=== PATIENT | male | born 1985 | race Caucasian/White ===

== ENCOUNTER 2019-04-19 18:44 | Emergency (ER) | payer OTHER ==
[2019-04-19 19:51] LABS: Basophils % (A) 1 %; Eosinophils # (A) 0.2 k/uL (0-0.7); Eosinophils % (A) 2 %; HCT 44.3 % (39.0-53.0); HGB 14.8 gm/dL (13.0-17.5); Lymphocytes # (A) 1.6 k/uL (1.0-4.8); Lymphocytes % (A) 22 %; MCH 29.6 pg (25.0-35.0); MCHC 33.5 g/dL (31.0-37.0); MCV 88.4 fL (80.0-100.0); Mean Platelet Volume 8.3; Monocytes # (A) 0.4 k/uL (0-1.0); Monocytes % (A) 6 %; Neutrophils # (A) 4.8 k/uL (1.3-7.7); Neutrophils % (A) 66 %; Platelet Count 217 k/uL (150-450); RBC 5.02 m/uL (4.30-5.90); RDW 12.8 % (11.5-15.5); WBC 7.2 k/uL (3.8-10.6)
[2019-04-19 20:01] LABS: ALT 44 U/L (4-49); AST 30 U/L (17-59); African American GFR (CKD) >90 (>60 ml/min/1.73 sqM); Albumin 4.5 g/dL (3.5-5.0); Alkaline Phosphatase 70 U/L (38-126); Anion Gap 10 mmol/L; Blood Urea Nitrogen 20 mg/dL (9-20); Calcium 9.3 mg/dL (8.4-10.2); Carbon Dioxide 26 mmol/L (22-30); Chloride 103 mmol/L (98-107); Glucose 111 mg/dL (74-99); Non-African American GFR(CKD) >90 (>60 ml/min/1.73 sqM); Potassium 4.4 mmol/L (3.5-5.1); Sodium 139 mmol/L (137-145); Total Bilirubin 0.6 mg/dL (0.2-1.3); Total Protein 7.2 g/dL (6.3-8.2)
--- NOTE | 2019-04-19 21:09 | ED ---
General Adult HPI - General Chief complaint: GI Bleed Stated complaint: Blood in stool Time Seen by Provider: 04/19/19 19:15 Source: patient, RN notes reviewed, old records reviewed Mode of arrival: ambulatory Limitations: no limitations - History of Present Illness Initial comments: 34-year-old male patient with the chief complaint of rectal bleeding. Patient reports he had dark red stool 2 times today. Also reports some generalized periumbilical abdominal discomfort. Denies the use of blood thinners. Reports he did have some rectal bleeding proximally 6 years ago. Denies any history of colonoscopy. Denies a history of ulcerative colitis or Crohn's. Denies any other complaints. Systemic: Pt denies fatigue, fever/chills, rash. Pt denies weakness, night sweats, weight loss. Neuro: Pt denies headache, visual disturbances, syncope or pre-syncope. HEENT: Pt denies ocular discharge or irritation, otalgia, rhinorrhea, pharyngiti s or notable lymphadenopathy. Cardiopulmonary: Pt denies chest pain, SOB, heart palpitations, dyspnea on exertion. Abdominal/GI: Pt denies n/v/d. : Pt denies dysuria, burning w/ urination, frequency/urgency. Denies new onset urinary or bowel incontinence. MSK: Pt denies myalgia, loss of strength or function in extremities. Neuro: Pt denies new onset weakness, paresthesias. - Related Data Allergies Allergy/AdvReac Type Severity Reaction Status Date / Time No Known Allergies Allergy Verified 04/19/19 18:51 Review of Systems ROS Statement: Those systems with pertinent positive or pertinent negative responses have been documented in the HPI. ROS Other: All systems not noted in ROS Statement are negative. Past Medical History Past Medical History: Asthma Additional Past Medical History / Comment(s): back pain, neck pain History of Any Multi-Drug Resistant Organisms: None Reported Past Surgical History: No Surgical Hx Reported Past Psychological History: No Psychological Hx Reported Smoking Status: Never smoker Past Alcohol Use History: Occasional Past Drug Use History: None Reported General Exam - General Exam Comments Initial Comments: Constitutional: NAD, AOX3, Pt has pleasant affect. HEENT: NC/AT, trachea midline, neck supple, no lymphadenopathy. Posterior pharynx non erythematous, without exudates. External ears appear normal, without discharge. Mucous membranes moist. Eyes PERRLA, EOM intact. There is no scleral icterus. No pallor noted. Cardiopulmonary: RRR, no murmurs, rubs or gallops, no JVD noted. Lungs CTAB in anterior and posterior guajardo. No peripheral edema. Abdominal exam: Abdomen soft and non-distended. Abdomen midly tender to palpation in periumbilical region.. Bowel sounds active in LLQ. No hepatosplenomegaly. No ecchymosis Neuro: CN II-XII grossly intact. No nuchal rigidity. No raccon eyes, no duffy sign, no hemotympanum. No cervical spinal tenderness. MSK: No posterior calf tenderness bilaterally, homans sign negative bilaterally. Posterior tibialis and radial pulse +2 bilaterally. Sensation intact in upper and lower extremities. Full active ROM in upper and lower extremities, 5/5 stregnth. Rectal: Rectal exam performed, dried blood noted, internal hemorrhoid noted at 5:00. Limitations: no limitations Course Vital Signs 04/19/19 18:49 Temperature 99.0 F Pulse Rate 101 H Respiratory 20 Rate Blood Pressure 127/86 O2 Sat by Pulse 94 L Oximetry Medical Decision Making - Medical Decision Making 34-year-old male patient with the chief complaint of rectal bleeding. Patient reports he had dark red stool 2 times today. Also reports some generalized pe riumbilical abdominal discomfort. Denies the use of blood thinners. Reports he did have some rectal bleeding proximally 6 years ago. Denies any history of colonoscopy. Denies a history of ulcerative colitis or Crohn's. Denies any other complaints. Patient vital signs are stable, afebrile. Physical exam displayed mild amount of periumbilical abdominal discomfort. Exam revealed dried blood, internal hemorrhoid. Laboratory investigations were obtained, he will be stable at 14.8. Occult blood is negative. Otherwise noncompressive. KUB displayed no acute process. Etiology of patient's rectal bleeding likely internal hemorrhoid. Pt declines CT of abdomen and pelvis. Patient will monitor abdominal discomfort will return to ER if condition worsens. Otherwise patient follow up with GI consult tomorrow, so his primary care provider. Case discussed with Dr. Saunders. - Lab Data Result diagrams: 04/19/19 19:09 04/19/19 19:09 Lab Results 04/19/19 04/19/19 04/19/19 Range/Units 19:09 19:09 19:09 WBC 7.2 (3.8-10.6) k/uL RBC 5.02 (4.30-5.90) m/uL Hgb 14.8 (13.0-17.5) gm/dL Hct 44.3 (39.0-53.0) % MCV 88.4 (80.0-100.0) fL MCH 29.6 (25.0-35.0) pg MCHC 33.5 (31.0-37.0) g/dL RDW 12.8 (11.5-15.5) % Plt Count 217 (150-450) k/uL Neutrophils % 66 % Lymphocytes % 22 % Monocytes % 6 % Eosinophils % 2 % Basophils % 1 % Neutrophils # 4.8 (1.3-7.7) k/uL Lymphocytes # 1.6 (1.0-4.8) k/uL Monocytes # 0.4 (0-1.0) k/uL Eosinophils # 0.2 (0-0.7) k/uL Basophils # 0.0 (0-0.2) k/uL Sodium 139 (137-145) mmol/L Potassium 4.4 (3.5-5.1) mmol/L Chloride 103 (98-107) mmol/L Carbon Dioxide 26 (22-30) mmol/L Anion Gap 10 mmol/L BUN 20 (9-20) mg/dL Creatinine 1.01 (0.66-1.25) mg/dL Est GFR (CKD-EPI)AfAm >90 (>60 ml/min/1.73 sqM) Est GFR (CKD-EPI)NonAf >90 (>60 ml/min/1.73 sqM) Glucose 111 H (74-99) mg/dL Calcium 9.3 (8.4-10.2) mg/dL Total Bilirubin 0.6 (0.2-1.3) mg/dL AST 30 (17-59) U/L ALT 44 (4-49) U/L Alkaline Phosphatase 70 (38-126) U/L Total Protein 7.2 (6.3-8.2) g/dL Albumin 4.5 (3.5-5.0) g/dL Lipase (23-300) U/L Stool Occult Blood Negative (Negative) 04/19/19 Range/Units 19:09 WBC (3.8-10.6) k/uL RBC (4.30-5.90) m/uL Hgb (13.0-17.5) gm/dL Hct (39.0-53.0) % MCV (80.0-100.0) fL MCH (25.0-35.0) pg MCHC (31.0-37.0) g/dL RDW (11.5-15.5) % Plt Count (150-450) k/uL Neutrophils % % Lymphocytes % % Monocytes % % Eosinophils % % Basophils % % Neutrophils # (1.3-7.7) k/uL Lymphocytes # (1.0-4.8) k/uL Monocytes # (0-1.0) k/uL Eosinophils # (0-0.7) k/uL Basophils # (0-0.2) k/uL Sodium (137-145) mmol/L Potassium (3.5-5.1) mmol/L Chloride (98-107) mmol/L Carbon Dioxide (22-30) mmol/L Anion Gap mmol/L BUN (9-20) mg/dL Creatinine (0.66-1.25) mg/dL Est GFR (CKD-EPI)AfAm (>60 ml/min/1.73 sqM) Est GFR (CKD-EPI)NonAf (>60 ml/min/1.73 sqM) Glucose (74-99) mg/dL Calcium (8.4-10.2) mg/dL Total Bilirubin (0.2-1.3) mg/dL AST (17-59) U/L ALT (4-49) U/L Alkaline Phosphatase (38-126) U/L Total Protein (6.3-8.2) g/dL Albumin (3.5-5.0) g/dL Lipase 88 (23-300) U/L Stool Occult Blood (Negative) Disposition Clinical Impression: Internal hemorrhoid, Abdominal pain Disposition: HOME SELF-CARE Condition: Stable Instructions (If sedation given, give patient instructions): Hemorrhoids (ED), High Fiber Diet (ED), Acute Abdominal Pain (ED) Additional Instructions: Follow-up with primary care provider and GI consult tomorrow. Return to ER if abdominal pain worsens in any way or the location changes. Return to ER if rectal bleeding returns or worsens or if condition worsens in anyway. Recommended high-fiber diet and stool softeners. Is patient prescribed a controlled substance at d/c from ED?: No Referrals: Esteban Borges DO [Primary Care Provider] - 1-2 days Tu Zhou MD [STAFF PHYSICIAN] - 1-2 days
--- NOTE | 2019-04-19 21:38 | XR ---
EXAMINATION TYPE: XR KUB 2 views DATE OF EXAM: 04/19/2019 8:48 PM CLINICAL HISTORY: Pain TECHNIQUE: 2 upright views COMPARISON: None. FINDINGS: Scattered gas is seen in non-distended small bowel loops. Gas and fecal material is seen in non-distended colon. There is no visceromegaly, pneumoperitoneum, or abnormal calcification apprecia rohit. The lung bases are clear and the osseous structures are intact. IMPRESSION: No acute radiographic process.
[2019-04-19 22:18] VITALS: BP 136/80; PULSE 97; RESP 18; TEMP 98.8
== END 2019-04-19 22:18 | disposition home or self-care (01) ==
LOC: SUPCPDRO 18:44 → EC 18:44
DX: K64.8 Other hemorrhoids (principal)
CPT/HCPCS: 36415; 74018; 80053; 82272; 83690; 85025; 99284

== ENCOUNTER 2022-08-30 06:07 | Observation (INO) | payer OTHER ==
[2022-08-30] MEDS ORDERED: MORPHINE SULFATE 4 MG/ML SYRINGE IVP STA (06:18)
[2022-08-30] MEDS ORDERED: KETOROLAC 15 MG/ML 1 ML VIAL IVP STA (06:22)
--- NOTE | 2022-08-30 06:31 | ED ---
General Adult HPI <Marquez Serrato - Last Filed: 08/30/22 06:19> <Justin Durán - Last Filed: 08/30/22 10:13> - General Stated complaint: Chest Pain Time Seen by Provider: 08/30/22 06:17 - History of Present Illness Initial comments: This is a 37-year-old male with a past medical history including asthma presents emergency department via EMS for right-sided abdominal pain that is transitioned to central chest pain. The patient stated this woke him up out of sleep and started approximately one hour ago. The patient stated that he had pain that woke up in the right side of the abdomen however during transport with EMS is not transitioned to a pressure sensation in the middle of his chest. The patient reported associated nausea and diaphoresis however stated that he had never had any similar pain like this before. The patient was given a nitro dose via EMS and stated that he had mild improvement however his pain had recurred. The patient denied any other acute complaints at this time. (Marquez Serrato) - Related Data Allergies Allergy/AdvReac Type Severity Reaction Status Date / Time No Known Allergies Allergy Verified 08/30/22 08:35 Review of Systems ROS Other: All systems not noted in ROS Statement are negative. <Marquez Serrato - Last Filed: 08/30/22 06:19> ROS Other: All systems not noted in ROS Statement are negative. <Justin Durán - Last Filed: 08/30/22 10:13> ROS Statement: Those systems with pertinent positive or pertinent negative responses have been documented in the HPI. Past Medical History Past Medical History: Asthma Additional Past Medical History / Comment(s): back pain, neck pain History of Any Multi-Drug Resistant Organisms: None Reported Past Surgical History: No Surgical Hx Reported Past Psychological History: No Psychological Hx Reported Past Alcohol Use History: Occasional Past Drug Use History: None Reported <Marquez Serrato - Last Filed: 08/30/22 06:19> General Exam Limitations: no limitations General appearance: alert, in no apparent distress, in distress (2/2 to abdominal and chest pain), obese Head exam: Present: atraumatic, normocephalic, normal inspection Eye exam: Present: normal appearance, PERRL Pupils: Present: normal accommodation ENT exam: Present: normal exam, normal oropharynx, mucous membranes moist Neck exam: Present: normal inspection, full ROM Respiratory exam: Present: normal lung sounds bilaterally, chest wall tenderness (TTP over the sternum) Cardiovascular Exam: Present: regular rate, normal rhythm, normal heart sounds GI/Abdominal exam: Present: soft, normal bowel sounds Extremities exam: Present: normal inspection, full ROM Back exam: Present: normal inspection, full ROM Neurological exam: Present: alert, oriented X3, CN II-XII intact Psychiatric exam: Present: normal affect, normal mood Skin exam: Present: warm, dry <Marquez Serrato - Last Filed: 08/30/22 06:19> Course Vital Signs 08/30/22 08/30/22 08/30/22 06:13 07:03 07:08 Temperature 98.4 F Pulse Rate 76 79 70 Respiratory 28 H 20 16 Rate Blood Pressure 127/82 129/82 123/82 O2 Sat by Pulse 97 94 L 95 Oximetry 08/30/22 08:11 Temperature Pulse Rate 62 Respiratory 18 Rate Blood Pressure 121/88 O2 Sat by Pulse 98 Oximetry EKG Findings - EKG Comments: EKG Findings:: An EKG was obtained and was interpreted by myself showing a rate of 75, WA interval 188, QRS duration 98 and QTC of 434. This EKG showed a normal sinus rhythm without any significant ST segment elevation or depression noted. <Marquez Serrato - Last Filed: 08/30/22 06:19> Medical Decision Making <Marquez Serrato - Last Filed: 08/30/22 06:19> - Lab Data Result diagrams: 08/30/22 06:20 08/30/22 06:20 <Justin Durán - Last Filed: 08/30/22 10:13> - Medical Decision Making Was pt. sent in by a medical professional or institution (, PA, SCREW MACHINE SET UP OPERATOR TOOL, urgent care, hospital, or fdc...) When possible be specific @ -No Did you speak to anyone other than the patient for history (EMS, parent, family, police, friend...)? What history was obtained from this source @ -No Did you review nursing and triage notes (agree or disagree)? Why? @ -I reviewed and agree with nursing and triage notes Were old charts reviewed (outside hosp., previous admission, EMS record, old EKG, old radiological studies, urgent care reports/EKG's, fdc records)? Report findings @ -No old charts were reviewed Differential Diagnosis (chest pain, altered mental status, abdominal pain women, abdominal pain men, vaginal bleeding, weakness, fever, dyspnea, syncope, headache, dizziness, GI bleed, back pain, seizure, CVA, palpatations, mental health)? @ -Cholecystitis, ACS, pneumonia, pneumothorax EKG interpreted by me (3pts min.). @ -As above X-rays interpreted by me (1pt min.). @ -Chest x-ray was obtained but was pending at this time. CT interpreted by me (1pt min.). @ -None done U/S interpreted by me (1pt. min.). @ -A right upper quadrant ultrasound was also obtained but was still pending at this time. What testing was considered but not performed or refused? (CT, X-rays, U/S, labs)? Why? @ -None What meds were considered but not given or refused? Why? @ -None Did you discuss the management of the patient with other professionals (professionals i.e. , PA, SCREW MACHINE SET UP OPERATOR TOOL, lab, RT, psych nurse, social service manager, blow mold technician, teacher, transport corps officer, home health care case manager)? Give summary @ -No Was smoking cessation discussed for >3mins.? @ -No Was critical care preformed (if so, how long)? @ -No Were there social determinants of health that impacted care today? How? (Homelessness, low income, unemployed, alcoholism, drug addiction, transportation, low edu. Level, literacy, decrease access to med. care, [facility], rehab)? @ -No Was there de-escalation of care discussed even if they declined (Discuss DNR or withdrawal of care, Hospice)? DNR status @ -No What co-morbidities impacted this encounter? (DM, HTN, Smoking, COPD, CAD, Cancer, CVA, ARF, Chemo, Hep., AIDS, mental health diagnosis, sleep apnea, morbid obesity)? @ -None Was patient admitted / discharged? Hospital course, mention meds given and route, prescriptions, significant lab abnormalities, going to OR and other pertinent info. @ -The patient was seen and evaluated emergency department. On arrival, the patient did receive an EKG and did state that he was diaphoretic with continued pain on evaluation. Vital signs admission were however stable. Physical exam demonstrated a reproducible tenderness of patient over the sternum as well as right upper quadrant abdominal pain. The patient had laboratory workup as well as imaging including a chest x-ray and ultrasound to workup chest pain as well as possible cholecystitis. The patient received morphine as well as Toradol in the emergency department. The patient did state that his symptoms slightly improved however the patient will be signed out to the oncoming physician brody ding completion of the imaging and reevaluation. The patient was signed out to Dr. Durán at 0700. Undiagnosed new problem with uncertain prognosis? @ -No Drug Therapy requiring intensive monitoring for toxicity (Heparin, Nitro, Insulin, Cardizem)? @ -No Were any procedures done? @ -No (Marquez Serrato) Patient is signed out to me by previous shift physician, Dr. Serrato. Briefly, patient is a 29-year-old male presents emergency Department with upper abdominal lower thoracic symptoms. Plan cyanosis. Pending labs and imaging studies. Ultrasound suspects acute cholecystitis. Labs are within acceptable limits. Case discussed with Dr. Green will schedule patient for cholecystectomy. (Justin Durán) - Lab Data Lab Results 08/30/22 08/30/22 08/30/22 Range/Units 06:20 06:20 06:20 WBC 6.2 (3.8-10.6) k/uL RBC 4.88 (4.30-5.90) m/uL Hgb 13.8 (13.0-17.5) gm/dL Hct 42.7 (39.0-53.0) % MCV 87.4 (80.0-100.0) fL MCH 28.3 (25.0-35.0) pg MCHC 32.4 (31.0-37.0) g/dL RDW 13.7 (11.5-15.5) % Plt Count 217 (150-450) k/uL MPV 9.1 Neutrophils % 58 % Lymphocytes % 29 % Monocytes % 6 % Eosinophils % 3 % Basophils % 0 % Neutrophils # 3.6 (1.3-7.7) k/uL Lymphocytes # 1.8 (1.0-4.8) k/uL Monocytes # 0.3 (0-1.0) k/uL Eosinophils # 0.2 (0-0.7) k/uL Basophils # 0.0 (0-0.2) k/uL PT 10.3 (9.0-12.0) sec INR 1.0 (<1.2) APTT 22.1 (22.0-30.0) sec Sodium 136 L (137-145) mmol/L Potassium 5.2 H (3.5-5.1) mmol/L Chloride 104 (98-107) mmol/L Carbon Dioxide 22 (22-30) mmol/L Anion Gap 10 mmol/L BUN 16 (9-20) mg/dL Creatinine 0.95 (0.66-1.25) mg/dL Est GFR (CKD-EPI)AfAm >90 (>60 ml/min/1.73 sqM) Est GFR (CKD-EPI)NonAf >90 (>60 ml/min/1.73 sqM) Glucose 169 H (74-99) mg/dL Calcium 8.8 (8.4-10.2) mg/dL Magnesium 2.1 (1.6-2.3) mg/dL Total Bilirubin 1.4 H (0.2-1.3) mg/dL AST 49 (17-59) U/L ALT 43 (4-49) U/L Alkaline Phosphatase 65 (38-126) U/L Troponin I (0.000-0.034) ng/mL NT-Pro-B Natriuret Pep pg/mL Total Protein 7.8 (6.3-8.2) g/dL Albumin 4.4 (3.5-5.0) g/dL Lipase 75 (23-300) U/L 08/30/22 08/30/22 Range/Units 06:20 06:20 WBC (3.8-10.6) k/uL RBC (4.30-5.90) m/uL Hgb (13.0-17.5) gm/dL Hct (39.0-53.0) % MCV (80.0-100.0) fL MCH (25.0-35.0) pg MCHC (31.0-37.0) g/dL RDW (11.5-15.5) % Plt Count (150-450) k/uL MPV Neutrophils % % Lymphocytes % % Monocytes % % Eosinophils % % Basophils % % Neutrophils # (1.3-7.7) k/uL Lymphocytes # (1.0-4.8) k/uL Monocytes # (0-1.0) k/uL Eosinophils # (0-0.7) k/uL Basophils # (0-0.2) k/uL PT (9.0-12.0) sec INR (<1.2) APTT (22.0-30.0) sec Sodium (137-145) mmol/L Potassium (3.5-5.1) mmol/L Chloride (98-107) mmol/L Carbon Dioxide (22-30) mmol/L Anion Gap mmol/L BUN (9-20) mg/dL Creatinine (0.66-1.25) mg/dL Est GFR (CKD-EPI)AfAm (>60 ml/min/1.73 sqM) Est GFR (CKD-EPI)NonAf (>60 ml/min/1.73 sqM) Glucose (74-99) mg/dL Calcium (8.4-10.2) mg/dL Magnesium (1.6-2.3) mg/dL Total Bilirubin (0.2-1.3) mg/dL AST (17-59) U/L ALT (4-49) U/L Alkaline Phosphatase (38-126) U/L Troponin I <0.012 (0.000-0.034) ng/mL NT-Pro-B Natriuret Pep <20 pg/mL Total Protein (6.3-8.2) g/dL Albumin (3.5-5.0) g/dL Lipase (23-300) U/L Disposition <Marquez Serrato - Last Filed: 08/30/22 06:19> Decision Time: 09:15 <Justin Durán - Last Filed: 08/30/22 10:13> Clinical Impression: Cholecystitis Disposition: ADMITTED IP TO THIS HOSP Condition: Fair Referrals: Nonstaff,Physician [Primary Care Provider] - 1-2 days
--- NOTE | 2022-08-30 06:44 | XR ---
EXAMINATION TYPE: XR chest 2V DATE OF EXAM: 08/30/2022 6:40 AM COMPARISON: None TECHNIQUE: XR chest 2V Frontal and lateral views of the chest. CLINICAL INDICATION:Male, 37 years old with history of CP; FINDINGS: Lungs/Pleura: There is no evidence of pleural effusion, focal consolidation, or pneumothorax. Pulmonary vascularity: Unremarkable. Heart/mediastinum: Cardiomediastinal silhouette is enlarged. Musculoskeletal: No acute osseous pathology. IMPRESSION: Cardiomegaly without evidence for acute pulmonary process.
[2022-08-30 06:45] LABS: Basophils % (A) 0 %; Eosinophils # (A) 0.2 k/uL (0-0.7); Eosinophils % (A) 3 %; HCT 42.7 % (39.0-53.0); HGB 13.8 gm/dL (13.0-17.5); Lymphocytes # (A) 1.8 k/uL (1.0-4.8); Lymphocytes % (A) 29 %; MCH 28.3 pg (25.0-35.0); MCHC 32.4 g/dL (31.0-37.0); MCV 87.4 fL (80.0-100.0); Mean Platelet Volume 9.1; Monocytes # (A) 0.3 k/uL (0-1.0); Monocytes % (A) 6 %; Neutrophils # (A) 3.6 k/uL (1.3-7.7); Neutrophils % (A) 58 %; Platelet Count 217 k/uL (150-450); RBC 4.88 m/uL (4.30-5.90); RDW 13.7 % (11.5-15.5); WBC 6.2 k/uL (3.8-10.6)
[2022-08-30 07:03] LABS: Partial Thromboplastin Time 22.1 sec (22.0-30.0); Prothrombin Time 10.3 sec (9.0-12.0)
--- NOTE | 2022-08-30 07:16 | US ---
EXAMINATION TYPE: US abdomen limited DATE OF EXAM: 08/30/2022 COMPARISON: NONE CLINICAL INDICATION: Male, 37 years old with history of RUQ pain, r/o cholecystitis; Pt states RUQ an d chest pain that started this AM TECHNIQUE: Multiple sonographic images of the right upper quadrant are obtained. FINDINGS: EXAM MEASUREMENTS: Liver Length: 16.8 cm Gallbladder Wall: 0.3 cm CBD: 0.4 cm Right Kidney: 11.5 x 5.6 x 5.9 cm DEVICE SALES CONSULTANT NOTES: Morbidly obese pt- difficult exam Pancreas: Obscured by bowel gas Liver: Difficult to penetrate, echogenic, heterogeneous Gallbladder: Sludge with possible gallstone, wall thickness upper limits of normal Evidence for sonographic Rangel's sign: Yes CBD: wnl Right Kidney: No evidence of hydro Limited examination due to patient's body habitus. Pancreas is nonvisualized due to overlying bowel g as. Liver is heterogenous in diffusely echogenic and difficult to penetrate. This limits dilation. No gross evidence of a lesion within these limitations. Gallbladder sludge with cholelithiasis. The wal l is within normal limits. No pericholecystic fluid. Per middle school spanish teacher, positive sonographic Rangel sig n. Common bile duct within normal limits. Right kidney is unremarkable without evidence of hydronephr osis, nephrolithiasis, or solid mass. IMPRESSION: Limited examination due to patient's body habitus. 1. Cholelithiasis with biliary sludge without wall thickening or pericholecystic fluid. Per sonograph er, positive sonographic Rangel's sign. Findings are equivocal for acute cholecystitis. Consider furt her evaluation with nuclear medicine HIDA scan. 2. Hepatic steatosis.
[2022-08-30 07:23] LABS: ALT 43 U/L (4-49); AST 49 U/L (17-59); African American GFR (CKD) >90 (>60 ml/min/1.73 sqM); Albumin 4.4 g/dL (3.5-5.0); Alkaline Phosphatase 65 U/L (38-126); Anion Gap 10 mmol/L; Blood Urea Nitrogen 16 mg/dL (9-20); Calcium 8.8 mg/dL (8.4-10.2); Carbon Dioxide 22 mmol/L (22-30); Chloride 104 mmol/L (98-107); Glucose 169 mg/dL (74-99); Lipase 75 U/L (23-300); Magnesium 2.1 mg/dL (1.6-2.3); Non-African American GFR(CKD) >90 (>60 ml/min/1.73 sqM); Sodium 136 mmol/L (137-145); Total Bilirubin 1.4 mg/dL (0.2-1.3); Total Protein 7.8 g/dL (6.3-8.2)
[2022-08-30 07:27] LABS: Potassium 5.2 mmol/L (3.5-5.1)
[2022-08-30] MEDS ORDERED: NALOXONE 0.4 MG/ML 1 ML VIAL IV PRN (10:09)
[2022-08-30] MEDS ORDERED: AMPICILLIN-SULBACTAM 3 GM in SODIUM CHLORIDE 0.9% 50 ML IVPB SCH (12:00)
[2022-08-30] MEDS: AMPICILLIN-SULBACTAM 3 GM in SODIUM CHLORIDE 0.9% 100 ML IVPB SCH ×2 (12:04→16:58)
[2022-08-30] MEDS: SODIUM CHLORIDE 0.9% 1,000 ML IV SCH ×2 (12:04→16:59)
--- NOTE | 2022-08-30 13:09 | P.GSHP ---
History of Present Illness H&P Date: 08/30/22 CHIEF COMPLAINT: Abdominal pain HISTORY OF PRESENT ILLNESS: This is a 37-year-old male who presented to the hospital with complaints of right upper quadrant abdominal pain and chest pain. Patient reports that the pain woke him up around 445 this morning. He was very nauseous. He had eaten chicken nuggets from [employer] last night for dinner. Patient has never had asked parents pain like this before. She denies any vomiting. Denies any fever chills or sweats. Denies any prior surgical hi story. Denies any cardiac history. Ultrasound had shown evidence of gallstones with sludge and positive Rangel sign. She admitted to the hospital with acute cholecystitis. PAST MEDICAL HISTORY: Asthma, Borderline Diabetic PAST SURGICAL HISTORY: wisdom teeth surgery MEDICATIONS: See below ALLERGIES: See below SOCIAL HISTORY: No illicit drug use. REVIEW OF SYSTEMS: CONSTITUTIONAL: Denies fever or chills. HEENT: Denies blurred vision, vision changes, or eye pain. Denies hemoptysis CARDIOVASCULAR: Denies chest pain or pressure. RESPIRATORY: No shortness of breath. GASTROINTESTINAL: See HPI for pertinent findings HEMATOLOGIC: Denies bleeding disorders. GENITOURINARY: Denies any blood in urine or increased urinary frequency. SKIN: Denies pruitis. Denies rash. PHYSICAL EXAM: VITAL SIGNS: Reviewed GENERAL: Well-developed in no acute distress. HEENT: No sclera icterus. Extraocular movements grossly intact. Moist buccal mucosa. Head is atraumatic, normocephalic. No nasal drainage. ABDOMEN: Soft. Nondistended. Right upper quadrant tenderness NEUROLOGIC: Alert and oriented. Cranial nerves II through XII grossly intact. LABORATORY DATA: WBC is 6.2 Hgb 13.8 platelets 217 Sodium is 136 potassium 5.2 creatinine 0.95 Total bili 1.4 AST 49 ALT 43 alk phos 65 troponin negative BNP less than 20 lipase 75 IMAGING: abdominal ultrasound cholelithiasis with biliary sludge without wall thickening or pericholecystic fluid. Positive Rangel sign. Findings are equal, for acute cholecystitis. Hepatic steatosis. ASSESSMENT: 1. Acute cholecystitis with ultrasound findings of cholelithiasis and biliary sludge. Positive Rangel sign PLAN: -Patient scheduled for laparoscopic cholecystectomy today with Dr. adamson -Keep patient nothing by mouth -Continue IV antibiotics -Continue IV fluids -Pain medication and antiemetics as needed -Medicine service consulted for medical management Physician Purchasing Analyst note has been reviewed by physician. Signing provider agrees with the documented findings, assessment, and plan of care. Past Medical History Past Medical History: Asthma Additional Past Medical History / Comment(s): back pain, neck pain History of Any Multi-Drug Resistant Organisms: None Reported Past Surgical History: No Surgical Hx Reported Past Psychological History: No Psychological Hx Reported Past Alcohol Use History: Occasional Past Drug Use History: None Reported Medications and Allergies Home Medications Medication Instructions Recorded Confirmed Type Cyclobenzaprine [Flexeril] 10 mg PO HS PRN 08/30/22 08/30/22 History Ibuprofen [Motrin] 600 mg PO Q8H PRN 08/30/22 08/30/22 History Allergies Allergy/AdvReac Type Severity Reaction Status Date / Time No Known Allergies Allergy Verified 08/30/22 08:35 Surgical - Exam Vital Signs Temp Pulse Resp BP Pulse Ox 98.4 F 76 28 H 127/82 97 08/30/22 06:13 08/30/22 06:13 08/30/22 06:13 08/30/22 06:13 08/30/22 06:13 Results - Labs 08/30/22 06:20 08/30/22 06:20 Abnormal Lab Results - Last 24 Hours (Table) 08/30/22 Range/Units 06:20 Sodium 136 L (137-145) mmol/L Potassium 5.2 H (3.5-5.1) mmol/L Glucose 169 H (74-99) mg/dL Total Bilirubin 1.4 H (0.2-1.3) mg/dL Diabetes panel 08/30/22 Range/Units 06:20 Sodium 136 L (137-145) mmol/L Potassium 5.2 H (3.5-5.1) mmol/L Chloride 104 (98-107) mmol/L Carbon Dioxide 22 (22-30) mmol/L BUN 16 (9-20) mg/dL Creatinine 0.95 (0.66-1.25) mg/dL Glucose 169 H (74-99) mg/dL Calcium 8.8 (8.4-10.2) mg/dL AST 49 (17-59) U/L ALT 43 (4-49) U/L Alkaline Phosphatase 65 (38-126) U/L Total Protein 7.8 (6.3-8.2) g/dL Albumin 4.4 (3.5-5.0) g/dL Calcium panel 08/30/22 Range/Units 06:20 Calcium 8.8 (8.4-10.2) mg/dL Albumin 4.4 (3.5-5.0) g/dL Pituitary panel 08/30/22 Range/Units 06:20 Sodium 136 L (137-145) mmol/L Potassium 5.2 H (3.5-5.1) mmol/L Chloride 104 (98-107) mmol/L Carbon Dioxide 22 (22-30) mmol/L BUN 16 (9-20) mg/dL Creatinine 0.95 (0.66-1.25) mg/dL Glucose 169 H (74-99) mg/dL Calcium 8.8 (8.4-10.2) mg/dL Adrenal panel 08/30/22 Range/Units 06:20 Sodium 136 L (137-145) mmol/L Potassium 5.2 H (3.5-5.1) mmol/L Chloride 104 (98-107) mmol/L Carbon Dioxide 22 (22-30) mmol/L BUN 16 (9-20) mg/dL Creatinine 0.95 (0.66-1.25) mg/dL Glucose 169 H (74-99) mg/dL Calcium 8.8 (8.4-10.2) mg/dL Total Bilirubin 1.4 H (0.2-1.3) mg/dL AST 49 (17-59) U/L ALT 43 (4-49) U/L Alkaline Phosphatase 65 (38-126) U/L Total Protein 7.8 (6.3-8.2) g/dL Albumin 4.4 (3.5-5.0) g/dL
[2022-08-30] MEDS: HYDROmorphone 1 MG/ML 1 ML SYRINGE IVP PRN (14:33)
[2022-08-30] MEDS: ONDANSETRON 4 MG/2 ML VIAL IVP PRN (14:52)
[2022-08-31] MEDS: SODIUM CHLORIDE 0.9% 1,000 ML IV SCH ×2 (02:44→10:34)
[2022-08-31] MEDS: AMPICILLIN-SULBACTAM 3 GM in SODIUM CHLORIDE 0.9% 100 ML IVPB SCH ×3 (02:44→16:37)
[2022-08-31] MEDS ORDERED: LACTATED RINGERS 1,000 ML IV ONE ×2 (06:48→08:09)
[2022-08-31 06:50] VITALS: RESP 16
[2022-08-31] MEDS ORDERED: HEPARIN SODIUM,PORCINE/PF 5,000 UNIT/0.5 ML SYRINGE SQ ONE (06:58)
[2022-08-31] MEDS ORDERED: DEXAMETHASONE SOD PHOSPHATE 4 MG/ML 1 ML VIAL IV ONE (07:00)
[2022-08-31] MEDS ORDERED: ONDANSETRON 4 MG/2 ML VIAL IVP ONE (07:00)
[2022-08-31] MEDS ORDERED: fentaNYL (PF) 50 MCG/ML 2 ML AMP ONE (07:20)
[2022-08-31] MEDS ORDERED: SUCCINYLCHOLINE CHLORIDE 200 MG/10 ML VIAL IV ONE (07:20)
[2022-08-31] MEDS ORDERED: NEOSTIGMINE 1 MG/ML 10 ML VIAL ONE (07:20)
[2022-08-31] MEDS ORDERED: ROCURONIUM 10 MG/ML (5 ML VIAL) IV ONE (07:20)
[2022-08-31] MEDS ORDERED: PROPOFOL 10 MG/ML 20 ML VIAL IV ONE (07:20)
[2022-08-31] MEDS ORDERED: GLYCOPYRROLATE 0.2 MG/ML 2 ML VIAL ONE (07:20)
[2022-08-31] MEDS ORDERED: MIDAZOLAM 2 MG/2 ML VIAL ONE (07:20)
[2022-08-31] MEDS ORDERED: LIDOCAINE 2% INJ 20 MG/ML (2 ML VIAL) ONE (07:20)
[2022-08-31] MEDS ORDERED: HEPARIN SODIUM,PORCINE 5,000 UNIT/ML 1 ML VIAL SQ ONE (07:22)
[2022-08-31] MEDS ORDERED: BUPIVACAINE (PF) 0.25% 30 ML VIAL SQ ONE ×2 (07:22→07:41)
--- NOTE | 2022-08-31 08:08 | P.OP ---
Date of Procedure: 08/31/22 Preoperative Diagnosis: Cholecystitis Postoperative Diagnosis: Cholecystitis Procedure(s) Performed: Laparoscopic cholecystectomy Anesthesia: CONY Surgeon: Lobo Green Estimated Blood Loss (ml): 5 Pathology: other (Gallbladder) Condition: stable Disposition: PACU Description of Procedure: The patient was placed on the operating table. The patient received a general endotracheal tube anesthesia. The patients abdomen was prepped and draped in the usual sterile fashion. Through an infraumbilical stab incision, the fascia of the anterior abdominal wall was grasped with a pair of Kochers and then the Veress needle was placed in the peritoneal cavity. Position of the Veress needle was confirmed with positive drop test. The abdomen was then insufflated. After adequate insufflation, the 10 mm trocar was placed in the peritoneal cavity. Following this the laparoscope was placed in the peritoneal cavity. The patient was placed in the head-up, right side up position and then a 5 mm trocar was placed in the right lateral and right subcostal position under direct visualization. A 8 mm trocar was placed in the epigastric position. The gallbladder was grasped in the fundus and infundibulum. Traction on the gallbladder was placed in the lateral and the cephalad positions. The triangle of Calot was visualized.. The cystic duct was bluntly dissected until the union of the cystic duct and common bile duct was seen. A critical view of safety was achieved. The cystic duct was then divided and sealed with the Harmonic scissors. A PDS Endoloop was then placed throughout the cystic duct stump. The cystic artery divided and sealed with the Harmonic scissors. The gallbladder was then removed from the liver bed using Harmonic scissors. The gallbladder was then extracted through the epigastric port site. Operative field was checked for any bleeding spots and Harmonic scissors was used to coagulate the liver bed. The abdomen was irrigated. The trocars were removed. The skin was closed using interrupted 3-0 Vicryl suture. Dermabond dressing were applied. The patient tolerated the procedure well.
[2022-08-31] MEDS ORDERED: ONDANSETRON 4 MG/2 ML VIAL IVP PRN (08:09)
[2022-08-31] MEDS ORDERED: NALOXONE 0.4 MG/ML 1 ML VIAL IV PRN (08:09)
[2022-08-31] MEDS ORDERED: HYDROmorphone 0.5 MG/0.5 ML SYRINGE IVP PRN (08:09)
[2022-08-31] MEDS ORDERED: ENOXAPARIN 40 MG/0.4 ML SYRINGE SQ SCH (09:00)
[2022-08-31 09:33] VITALS: TEMP 97.7
[2022-08-31 10:54] LABS: Basophils % (A) 0 %; Eosinophils # (A) 0.1 k/uL (0-0.7); Eosinophils % (A) 1 %; HCT 46.8 % (39.0-53.0); HGB 14.8 gm/dL (13.0-17.5); Lymphocytes # (A) 0.6 k/uL (1.0-4.8); Lymphocytes % (A) 6 %; MCH 28.9 pg (25.0-35.0); MCHC 31.6 g/dL (31.0-37.0); MCV 91.6 fL (80.0-100.0); Mean Platelet Volume 8.4; Monocytes # (A) 0.2 k/uL (0-1.0); Monocytes % (A) 2 %; Neutrophils # (A) 8.3 k/uL (1.3-7.7); Neutrophils % (A) 91 %; Platelet Count 199 k/uL (150-450); RDW 13.3 % (11.5-15.5); WBC 9.2 k/uL (3.8-10.6)
[2022-08-31 11:13] LABS: ALT 65 U/L (4-49); African American GFR (CKD) >90 (>60 ml/min/1.73 sqM); Albumin 4.2 g/dL (3.5-5.0); Albumin/Globulin Ratio 1.4; Anion Gap 7 mmol/L; Blood Urea Nitrogen 13 mg/dL (9-20); Calcium 8.8 mg/dL (8.4-10.2); Carbon Dioxide 27 mmol/L (22-30); Chloride 104 mmol/L (98-107); Glucose 143 mg/dL (74-99); Non-African American GFR(CKD) >90 (>60 ml/min/1.73 sqM); Sodium 138 mmol/L (137-145); Total Bilirubin 1.2 mg/dL (0.2-1.3); Total Protein 7.2 g/dL (6.3-8.2)
[2022-08-31 11:18] LABS: AST 56 U/L (17-59); Alkaline Phosphatase 65 U/L (38-126); Potassium 4.7 mmol/L (3.5-5.1)
[2022-08-31 11:54] VITALS: BP 137/87; PULSE 90
[2022-08-31] MEDS: ONDANSETRON 4 MG/2 ML VIAL IVP PRN (12:37)
[2022-08-31] MEDS: HYDROmorphone 1 MG/ML 1 ML SYRINGE IVP PRN (12:38)
--- NOTE | 2022-08-31 13:26 | P.CONS ---
History of Present Illness - Reason for Consult Consult date: 08/31/22 Medical management - History of Present Illness History of present illness; patient is a 37-year-old gentleman with past medical history significant for asthma, prediabetic presented to the ER because of abdominal pain. Abdominal pain started early in the morning, was stated in the right upper quadrant, was sharp in intensity, nonradiating. Not associated with any nausea or vomiting. Because of the abdominal pain, patient came to the ER. Patient ultrasound showed evidence of gallstones with sludge and positive Rangel sign. Patient was admitted under Gen. surgery for acute coronary and underwent laparoscopic cholecystectomy. Medicine team has been consulted for medical management REVIEW OF SYSTEMS: CONSTITUTIONAL: No fever, no malaise, no fatigue. HEENT: No recent visual problems or hearing problems. Denied any sore throat. CARDIOVASCULAR: No chest pain, orthopnea, PND, no palpitations, no syncope. PULMONARY: No shortness of breath, no cough, no hemoptysis. GASTROINTESTINAL: No diarrhea, no nausea, no vomiting. Complaining of abdominal pain. Complaining of loss of appetite NEUROLOGICAL: No headaches, no weakness, no numbness. HEMATOLOGICAL: Denies any bleeding or petechiae. GENITOURINARY: Denies any burning micturition, frequency, or urgency. MUSCULOSKELETAL/RHEUMATOLOGICAL: Denies any joint pain, swelling, or any muscle pain. ENDOCRINE: Denies any polyuria or polydipsia. The rest of the 14-point review of systems is negative. PHYSICAL EXAMINATION: GENERAL: The patient is alert and oriented x3, not in any acute distress. Well developed, well nourished. HEENT: Pupils are round and equally reacting to light. EOMI. No scleral icterus. No conjunctival pallor. Normocephalic, atraumatic. No pharyngeal erythema. No thyromegaly. CARDIOVASCULAR: S1 and S2 present. No murmurs, rubs, or gallops. PULMONARY: Chest is clear to auscultation, no wheezing or crackles. ABDOMEN: Soft, nontender, no rigidity, lap jim surgical incision seen MUSCULOSKELETAL: No joint swelling or deformity. EXTREMITIES: No cyanosis, clubbing, or pedal edema. NEUROLOGICAL: Gross neurological examination did not reveal any focal deficits. SKIN: No rashes. Assessment and plan Acute cholecystitis status post lap jim History of asthma Prediabetic Monitor vital signs Monitor CBC Monitor CMP Continue use of I-S Continue pain meds per surgery Continue Postop antibiotics per surgery Advance diet per surgery Resume home meds Past Medical History Past Medical History: Asthma, Diabetes Mellitus Additional Past Medical History / Comment(s): back pain, neck pain, borderline DM as of august 2022, obese- does have a new RX for weight loss injection that he hasnt started taking yet. History of Any Multi-Drug Resistant Organisms: None Reported Past Surgical History: No Surgical Hx Reported Additional Past Surgical History / Comment(s): wisdom teeth removal Past Anesthesia/Blood Transfusion Reactions: No Reported Reaction Past Psychological History: No Psychological Hx Reported Smoking Status: Never smoker Past Alcohol Use History: Occasional Past Drug Use History: None Reported - Past Family History Father Family Medical History: Diabetes Mellitus, Hypertension Mother Family Medical History: Diabetes Mellitus, Hypertension Medications and Allergies Home Medications Medication Instructions Recorded Confirmed Type Cyclobenzaprine [Flexeril] 10 mg PO HS PRN 08/30/22 08/30/22 History Ibuprofen [Motrin] 600 mg PO Q8H PRN 08/30/22 08/30/22 History Allergies Allergy/AdvReac Type Severity Reaction Status Date / Time No Known Allergies Allergy Verified 08/30/22 08:35 Physical Exam Vitals: Vital Signs Temp Pulse Pulse Pulse Resp BP Pulse Ox 08/31/22 10:26 90 16 137/87 93 L 08/31/22 10:11 93 16 146/88 91 L 08/31/22 09:56 91 159/91 93 L 08/31/22 09:40 86 158/84 91 L 08/31/22 09:32 97.7 F 72 16 136/92 91 L 08/31/22 09:07 92 148/86 92 L 08/31/22 08:52 85 16 146/85 99 08/31/22 08:37 77 16 141/84 98 08/31/22 08:22 97 F L 80 16 136/81 94 L 08/31/22 06:48 97.1 F L 90 16 124/75 94 L 08/31/22 01:24 98.5 F 82 18 122/76 93 L 08/30/22 20:00 98.2 F 91 18 115/64 96 Intake and Output 08/30/22 08/31/22 08/31/22 22:59 06:59 14:59 Intake Total 100 450 Output Total 5 Balance 100 445 Intake: IV 100 450 Oral 0 Output: Estimated Blood Loss 5 Other: # Voids 1 2 Results CBC & Chem 7: 08/31/22 10:40 08/31/22 10:40 Labs: Abnormal Lab Results - Last 24 Hours (Table) 08/31/22 08/31/22 Range/Units 10:40 10:40 Neutrophils # 8.3 H (1.3-7.7) k/uL Lymphocytes # 0.6 L (1.0-4.8) k/uL Glucose 143 H (74-99) mg/dL ALT 65 H (4-49) U/L
[2022-08-31] MEDS ORDERED: HYDROcodone/APAP 5-325MG 1 EACH TAB PO PRN (14:42)
--- NOTE | 2022-08-31 14:48 | P.DS ---
Providers Date of admission: 08/30/22 10:09 Expected date of discharge: 08/31/22 Attending physician: Lobo Green Consults: 08/30/22 13:10 Consult Physician Routine Consulting Provider: Rohit Jaramillo Consult Reason/Comments: medical management Do you want consulting provider notified?: Yes Primary care physician: Physician Nonstaff Hospital Course: Discharge diagnosis 1. Cholecystitis status post laparoscopic cholecystectomy Hospital course This is a 37-year-old male who presented with right upper quadrant abdominal pain. He was found have evidence of acute cholecystitis on imaging. Patient is status post laparoscopic cholecystectomy. His pain is controlled. He is afebrile. He has been up and ambulating. Denies any difficulty urinating. Patient can be discharged later today if tolerating diet and pain remains controlled. Please refer to chart for any further details. Physician Voltage Tester note has been reviewed by physician. Signing provider agrees with the documented findings, assessment, and plan of care. Patient Condition at Discharge: Stable Plan - Discharge Summary Discharge Rx Participant: No New Discharge Prescriptions: New metroNIDAZOLE [Flagyl] 500 mg PO TID 10 Days #30 tab Levofloxacin [Levaquin] 500 mg PO DAILY 10 Days #10 tab oxyCODONE HCL [OxyIR] 5 mg PO Q6H PRN 3 Days #12 tab PRN Reason: Pain Acetaminophen Tab [Tylenol Tab] 650 mg PO Q4H PRN #30 tablet PRN Reason: Pain Continue Cyclobenzaprine [Flexeril] 10 mg PO HS PRN PRN Reason: Muscle Spasm Ibuprofen [Motrin] 600 mg PO Q8H PRN PRN Reason: Pain Discharge Medication List Cyclobenzaprine [Flexeril] 10 mg PO HS PRN 08/30/22 [History] Ibuprofen [Motrin] 600 mg PO Q8H PRN 08/30/22 [History] Acetaminophen Tab [Tylenol Tab] 650 mg PO Q4H PRN #30 tablet 08/31/22 [Rx] Levofloxacin [Levaquin] 500 mg PO DAILY 10 Days #10 tab 08/31/22 [Rx] metroNIDAZOLE [Flagyl] 500 mg PO TID 10 Days #30 tab 08/31/22 [Rx] oxyCODONE HCL [OxyIR] 5 mg PO Q6H PRN 3 Days #12 tab 08/31/22 [Rx] Follow up Appointment(s)/Referral(s): Nonstaff,Physician [Primary Care Provider] - 1-2 days Lobo Green MD [STAFF PHYSICIAN] - 1 Week Activity/Diet/Wound Care/Special Instructions: PCP: Dr. Davie Burns - [facility] - [address] [place] [address] [id number]. [place] [address]. P: [phone] while taking OxyIR No lifting over 10 pounds Shower daily. No soaking or tub baths for 2 weeks Very light activity until you are reevaluated at your follow up appointment with your surgeon Discharge Disposition: HOME SELF-CARE
== END 2022-08-31 18:53 | disposition home or self-care (01) ==
LOC: EC 06:07 → 4SSUR 10:09 → INTOOBSV 10:09 → 5NMEDONC 12:23
PROVIDERS: ADMIT Surgery; ATTEND Surgery
DX: K81.2 Acute cholecystitis with chronic cholecystitis (principal); J45.909 Unspecified asthma, uncomplicated; R73.03 Prediabetes; I51.7 Cardiomegaly; K76.0 Fatty (change of) liver, not elsewhere classified; E66.9 Obesity, unspecified; Z68.41 Body mass index [BMI] 40.0-44.9, adult; Z98.818 Other dental procedure status; Z83.3 Family history of diabetes mellitus; Z82.49 Family history of ischemic heart disease and other diseases of the circulatory system
CPT/HCPCS: 96375 ×2; 96374; 99285; 36415; 93005; 83880; 80053 ×2; 83690; 83735; 84484; 85025 ×2; 85610; 85730; 87040; 71046; 76705; 47562; G0378; J2250; J0330; J2270; J1644; J1100; J2710; J2405 ×2; J1650; J3010; J1170 ×2; J0295 ×2; J1885; J2704; J2001; 88304